=== PATIENT | female | born 1990 | race Hispanic/Latino ===

== ENCOUNTER 2020-01-31 19:43 | Emergency (ER) | payer OTHER, SELFPAY ==
--- NOTE | ~2020-01-31 | CT_ITS ---
EXAMINATION: CT abdomen pelvis w con DATE: 01/31/2020 21:02 INDICATION: Right flank and right lower quadrant abdominal pain TECHNIQUE: Computed tomography (CT) of the abdomen and pelvis was performed with 100 cc Omnipaque 350 intravenous contrast. Automated exposure control and iterative reconstruction technique were employe d. Exam dose: 469.43 mGy-cm total exam DLP. COMPARISON: 07/11/2018 CT abdomen pelvis FINDINGS: Stable approximately 7 mm hypoattenuating lesion at the posterior aspect of the right hepat ic dome, not significantly changed since 07/11/2018, consistent with benign process. Status post cholecystectomy. No interval hepatic, splenic, pancreatic, adrenal or renal space-occupyi ng mass lesions. No urinary tract calculus or hydroureteronephrosis is detected. Normal caliber of the abdominal aorta. No intraperitoneal or retroperitoneal or pelvic mass lesion or adenopathy or ascites. No bowel obstruction, bowel wall thickening, pneumatosis, diverticulosis or diverticulitis is evident . Normal appendix. The urinary bladder is unremarkable. Retroflexed uterus. Included skeletal structures are unremarkable. The lung bases are clear. Normal heart size. No pericardial or pleural effusion. IMPRESSION: Stable 7 mm right hepatic lesions since 07/11/2018, consistent with benign process Status post cholecystectomy Retroflexed uterus Reviewed, dictated and finalized at [facility]. Reviewed, dictated and finalized at [facility]. IMPRESSION: Stable 7 mm right hepatic lesions since 07/11/2018, consistent wit h benign process Status post cholecystectomy Retroflexed uterus
[2020-01-31 19:49] VITALS: BP 114/74; PULSE 96; RESP 18; TEMP 36.2; O2SAT 98
--- NOTE | 2020-01-31 19:56 | ED.ABDPAIN ---
HPI - Abdominal Pain General Chief Complaint: Abdominal Pain Stated Complaint: back pain Time Seen by Provider: 01/31/20 19:54 Source: patient and family History of Present Illness HPI narrative: 29 years old white female presents with right flank and right lower back pain, radiating to right lower quadrant started 3 days ago, intermittent, patient denies any fever, chills, nausea, vomiting, diarrhea, constipation, urinary symptoms, vaginal bleeding or discharge. Last menstrual period was 1 week ago, history of cholecystectomy, does not smoke, drink occasionally. Patient reports painting her house 2 days prior to the beginning of her symptoms. Related Data Allergies Allergy/AdvReac Type Severity Reaction Status Date / Time No Known Allergies Allergy Verified 01/31/20 19:52 Review of Systems Review of Systems: Narrative: CONSTITUTIONAL: Denies fever, chills, or sweats. EYES: Denies visual changes, redness, or discharge. ENT: Denies rhinorrhea, congestion, sore throat, or otalgia. CARDIOVASCULAR: Denies chest pain, palpitations, or edema. RESPIRATORY: Denies cough or dyspnea. GASTROINTESTINAL: Right flank and right lower quadrant pain GENITOURINARY: Denies dysuria or hematuria. SKIN: Denies rash or itching. MUSCULOSKELETAL: Denies back pain, joint pain, or myalgia. NEUROLOGIC: Denies headache, numbness, or weakness. PSYCHIATRIC: Denies anxiety or depression. PMFSH Social History Social History Gender identity (if verbalized by the patient): Female Exam Narrative: Exam Narrative: General appearance: Well-developed, well-nourished Skin: Normal color Head: Normocephalic, nontraumatic Eyes: Clear conjunctiva ENT: Oropharynx normal, ears normal, nose normal Neck: Supple, nontender Chest and respiratory: Airway patent, no respiratory distress, no accessory muscle use Heart: Regular rate/rhythm Abdomen: Soft, moderate tenderness right flank, no bruises, no swelling, no rash, mild tenderness right lower quadrant, mild guarding, no rebound. , no organomegaly, quiet bowel sounds Vascular: Normal peripheral pulses, normal capillary refill. Musculoskeletal: Normal range of motion, nontender back Neurologic: Alert and oriented ?3, [employer] is normal as tested, no gross motor deficit Course Course Emergency Course: Stable Vital Signs Vital signs: Vital Signs Temperature 36.2 C L 01/31/20 19:49 Pulse Rate 96 01/31/20 19:49 Respiratory Rate 18 01/31/20 19:49 Blood Pressure 114/74 01/31/20 19:49 Pulse Oximetry 98 01/31/20 19:49 Temperature 36.2 C L 01/31/20 19:49 Pulse Rate 96 01/31/20 19:49 Respiratory Rate 18 01/31/20 19:49 Blood Pressure 114/74 01/31/20 19:49 Pulse Oximetry 98 01/31/20 19:49 MDM - Abdominal Pain MDM Narrative Medical decision making narrative: My plan to get labs, CT abdomen pelvis with IV contrast, UA, start IV fluid, Dilaudid and Zofran. Further plan to follow. my concern is the differential diagnosis below Differential Diagnosis Differential diagnosis: Likely abdominal pain, acute appendicitis, calculus of kidney, constipation and other (Urinary tract infection) Lab Data Result diagrams: 01/31/20 19:54 01/31/20 19:54 Labs: Lab Results 01/31/20 01/31/20 01/31/20 Range/Units 19:53 19:54 19:54 WBC 8.1 (4.5-10.0) K/mm3 RBC 4.77 (4.2-5.4) M/mm3 Hgb 13.9 (12.0-15.0) g/dL Hct 41.7 (37.0-47.0) % MCV 87.4 (80-100) fl MCH 29.1 (26-34) pg MCHC 33.3 (32-36) g/dl RDW 12.6 (11.5-14.5) % Plt Count 289 (150-375) k/mm3 MPV 10.8 H (7.4-10.4) fl Immature Gran % (Auto) 0.2
[2020-01-31 19:59] LABS: Basophils Absolute Auto 0.1 K/mm3 (0.0-0.1); Basophils Percent Auto 0.6 % (0.2-1.2); Eosinophils Absolute Auto 0.2 K/mm3 (0-0.3); Eosinophils Percent Auto 1.8 % (0-4.4); Hematocrit 41.7 % (37.0-47.0); Hemoglobin 13.9 g/dL (12.0-15.0); Immature Granulocyte Absolute 0.02 K/mm3 (0.00-0.031); Immature Granulocyte Percent A 0.2 % (0-0.5); Lymphocytes Percent Auto 45.6 % (18.3-44.2); Mean Corpuscular HGB Conc 33.3 g/dl (32-36); Mean Corpuscular Hemoglobin 29.1 pg (26-34); Mean Corpuscular Volume 87.4 fl (80-100); Mean Platelet Volume 10.8 fl (7.4-10.4); Monocytes Absolute Auto 0.4 K/mm3 (0.1-0.6); Monocytes Percent Auto 5.1 % (2.6-8.5); Neutrophils Absolute Auto 3.8 K/mm3 (1.3-6.7); Neutrophils Percent Auto 46.7 % (45.5-73.1); Platelet Count Result 289 k/mm3 (150-375); Red Blood Count 4.77 M/mm3 (4.2-5.4); Red Cell Distribution Width 12.6 % (11.5-14.5); White Blood Count 8.1 K/mm3 (4.5-10.0)
[2020-01-31 20:03] LABS: Add Urine Microscopic? YES; Appearance Urine Clear (Clear); Bacteria Urine Trace /hpf; Bilirubin Urine Negative (Negative); Blood Urine 1+ (Negative); Color Urine Colorless (Yellow); Glucose Urine UA Negative (Negative); Ketones Urine Negative (Negative); Leukocyte Esterase Ur Negative LEU/UL (Negative); Mucus Urine Rare /lpf; Nitrate Urine Negative (Negative); Protein Urine Negative (Negative); RBC Urine 0-2 /hpf (0-2); Squamous Epithelial Cell Urine Rare /hpf (Few); Urobilinogen Urine Negative mg/dL (<2.0); WBC Urine 0-3 /hpf
[2020-01-31 20:04] LABS: Specific Grav Ur 1.003 (1.001-1.035)
[2020-01-31 20:11] LABS: Blood Urea Nitrogen 11 mg/dL (7-17); Calcium 8.8 mg/dL (8.4-10.2); Carbon Dioxide 22 mmol/L (22-30); Chloride 104 mmol/L (98-107); Estimated CRCL calculation 98 ml/min; Estimated Glomerular Filt Rate > 60; Glucose 88 mg/dL (65-105); Potassium 3.8 mmol/L (3.4-5.0); Sodium 140 mmol/L (137-145)
[2020-01-31] MEDS: ONDANSETRON INJ 4 MG/2 ML VIAL IV PUSH (20:30)
[2020-01-31] MEDS: SODIUM CHLORIDE 0.9% IV 1,000 ML 999 ML IV CONT (20:31)
[2020-01-31 21:50] VITALS: BP 142/74; PULSE 88; RESP 16; O2SAT 98
== END 2020-01-31 21:51 | disposition home or self-care (01) ==
PROVIDERS: Emergency Medicine; Emergency Provider Emergency Medicine
DX: M54.5 Low back pain (principal)
CPT/HCPCS: 36415; 74177; 80048; 81001; 81025; 85025; 96361; 96374; 96375; 99284; J1170; J2405; J7030; Q9967

== ENCOUNTER 2020-03-21 17:47 | Emergency (ER) | payer OTHER, SELFPAY ==
--- NOTE | ~2020-03-21 | XR_ITS ---
EXAMINATION: XR foot RT min 3V DATE: 03/21/2020 18:14 INDICATION: Trauma to the dorsum of the right foot present with pain at the metatarsals TECHNIQUE: Dorsoplantar, two oblique and lateral views of the right foot were obtained. COMPARISON: None. FINDINGS: Alignment is normal. No fracture. Joint spaces are normal. Soft tissues are unremarkable. IMPRESSION: 1. No osseous abnormality. Reviewed, dictated and finalized at location [facility]. IMPRESSION: 1. No osseous abnormality.
[2020-03-21 17:54] VITALS: BP 114/70; PULSE 85; RESP 16; TEMP 37.1; O2SAT 98
--- NOTE | 2020-03-21 18:27 | ED.GENADULT ---
HPI - General Adult General Chief complaint: Extremity Injury, Lower Stated complaint: injury to right foot Time Seen by Provider: 03/21/20 18:28 Source: patient and RN notes reviewed Limitations: no limitations History of Present Illness HPI narrative: 29-year-old female presents today with complaints of right foot with pain, bruising, and swelling for the past 5 days. Julisa says the base of a ceramic lamp fell on RT foot causing injury. Advil, elevation, and ice with little relief. Hurts to bear weight. No radiation of pain. No numbness, tingling, or loss of mobility. Exacerbating factor applying weight. Denies inability to bear weight. Denies discoloration. Denies suspect foreign body. Denies fever or chills. The patient reports she have not been diagnosed with COVID-19. The patient reports she is not waiting for the results of a COVID-19 lab test. The patient reports she do not have fever, chills, weakness, or fatigue. The patient reports she do not have a new or worsening cough or shortness of breath. Denies chest pain. The patient reports she do not have any rhinorrhea, congestion, sore throat, nausea, vomiting, abdominal pain, and diarrhea. Tolerating po intake well. Denies recent traveling. Denies concerns for COVID-19 or exposures been home with limited outdoor exposure except for essential household needs, work, and return home. At this time, patient is not suspected of having COVID-19. Some parts of this dictation were generated by voice recognition software and may contain typographical and/or grammatical inaccuracies. Related Data Allergies Allergy/AdvReac Type Severity Reaction Status Date / Time No Known Allergies Allergy Verified 03/21/20 17:53 Review of Systems Review of Systems: Narrative: CONSTITUTIONAL: Denies fever, chills, sweats. EYES: Denies visual changes, redness, discharge. ENT: Denies rhinorrhea, congestion, sore throat, otalgia. CARDIOVASCULAR: Denies chest pain, palpitations, edema. RESPIRATORY: Denies dyspnea, wheezing, cough. GASTROINTESTINAL: Denies abdominal pain, nausea, vomiting, diarrhea. GENITOURINARY: Denies dysuria, hematuria, abnormal discharge. SKIN: Denies rash or itching. MUSCULOSKELETAL: Denies acute back pain or myalgia. Complains of pain, bruising, and swelling to right foot. NEUROLOGIC: Denies numbness or focal weakness. PSYCHIATRIC: Denies anxiety or depression. All other systems reviewed are negative, except as documented in HPI and below. [facility] Past Medical History Medical History (Updated 03/27/20 @ 11:29 by HAROLDO De La Vega) No significant past medical history Surgical History Surgical History (Updated 03/21/20 @ 18:29 by HAROLDO De La Vega) History of cholecystectomy History of tonsillectomy Family History Family History (Updated 03/21/20 @ 18:37 by HAROLDO De La Vega) Father Alive and well Mother Alive and well Social History Social History (Updated 03/21/20 @ 18:38 by HAORLDO De La Vega) Smoking status: Never smoker Tobacco type: cigarettes Second hand tobacco smoke exposure: No Alcohol intake: current Substance use: never Living arrangements: with family Occupation/Education: occupation Gender identity (if verbalized by the patient): Female Sexual Orientation (if Verbalized by the Patient): Straight or Heterosexual Comments At time of signature, agree with nurse past medical, surgical, social, and family history. There is no relevant family history pertinent to the presenting complaint. Exam Narrative: Exam Narrative: GENERAL: This is a well-nourished, well-developed patient, in no apparent distress. Ambulates with a limp favoring right lower extremity. HEAD: normocephalic, atraumatic. EYES: PERRL. Sclera clear/white. Vision is grossly intact. CARDIOVASCULAR: Regular rate and rhythm without murmurs, gallops, or rubs. RESPIRATORY: Clear to auscultation. Breath sounds equal bilaterally. N
== END 2020-03-21 18:47 | disposition home or self-care (01) ==
PROVIDERS: Emergency Provider Nurse Practitioner Family
DX: S93.601A Unspecified sprain of right foot, initial encounter (principal); X58.XXXA Exposure to other specified factors, initial encounter
CPT/HCPCS: 73630; 99213; G0463

== ENCOUNTER 2020-06-04 10:29 | Emergency (ER) | payer OTHER, SELFPAY ==
[2020-06-04] VITALS (18 sets, daily range): BP systolic 99–128; BP diastolic 55–93; PULSE 66–100; RESP 12–20; TEMP 36.7; O2SAT 93–100
--- NOTE | ~2020-06-04 | XR_ITS ---
EXAMINATION: XR chest 1V portable EXAM DATE: 06/04/2020 11:52 INDICATION: Shortness of air, nausea vomiting diarrhea. Headache. TECHNIQUE: Portable AP frontal chest x-ray was obtained. There is no prior study for comparison. FINDINGS: The lungs are clear. There are no pleural effusions. The cardiomediastinal silhouette is within normal limits. There is no pneumothorax suspected. The bones and soft tissues are unremarkab le. IMPRESSION: No acute cardiopulmonary findings. Reviewed, dictated and finalized at location [facility]. [employer]
[2020-06-04] MEDS: ONDANSETRON INJ 4 MG/2 ML VIAL IV PUSH (11:34)
[2020-06-04] MEDS: SODIUM CHLORIDE 0.9% IV 1,000 ML 999 ML IV CONT (11:34)
[2020-06-04] MEDS: FAMOTIDINE 20 MG/2 ML VIAL IV PUSH (11:34)
[2020-06-04 11:36] LABS: Basophils Percent Auto 0.5 % (0.2-1.2); Eosinophils Absolute Auto 0.1 K/mm3 (0-0.3); Eosinophils Percent Auto 0.8 % (0-4.4); Hematocrit 44.3 % (37.0-47.0); Hemoglobin 15.1 g/dL (12.0-15.0); Immature Granulocyte Absolute 0.03 K/mm3 (0.00-0.031); Immature Granulocyte Percent A 0.4 % (0-0.5); Lymphocytes Percent Auto 19.4 % (18.3-44.2); Mean Corpuscular HGB Conc 34.1 g/dl (32-36); Mean Corpuscular Hemoglobin 29.7 pg (26-34); Mean Platelet Volume 10.6 fl (7.4-10.4); Monocytes Absolute Auto 0.3 K/mm3 (0.1-0.6); Monocytes Percent Auto 3.5 % (2.6-8.5); Neutrophils Absolute Auto 6.2 K/mm3 (1.3-6.7); Neutrophils Percent Auto 75.4 % (45.5-73.1); Platelet Count Result 267 k/mm3 (150-375); Red Blood Count 5.09 M/mm3 (4.2-5.4); Red Cell Distribution Width 12.3 % (11.5-14.5); White Blood Count 8.3 K/mm3 (4.5-10.0)
[2020-06-04 11:43] LABS: Add Urine Microscopic? YES; Appearance Urine Cloudy (Clear); Bacteria Urine 1+ /hpf; Bilirubin Urine Negative (Negative); Blood Urine Negative (Negative); Color Urine Yellow (Yellow); Glucose Urine UA Negative (Negative); Ketones Urine Negative (Negative); Leukocyte Esterase Ur Negative LEU/UL (Negative); Mucus Urine Rare /lpf; Nitrate Urine Negative (Negative); Protein Urine Negative (Negative); RBC Urine 0-2 /hpf (0-2); Specific Grav Ur 1.012 (1.001-1.035); Squamous Epithelial Cell Urine Many /hpf (Few); Transitional Epi Cells Urine Rare /hpf (None Seen); Urobilinogen Urine Negative mg/dL (<2.0); WBC Urine 0-3 /hpf
[2020-06-04 11:47] LABS: Alanine Aminotransferase 27 U/L (4-35); Albumin Level 4.8 g/dL (3.5-5.1); Alkaline Phosphatase 54 U/L (38-126); Anion Gap 9 mmol/L (8-16); Aspartate Amino Transferase 25 U/L (14-36); Bilirubin,Total 0.5 mg/dL (0.2-1.3); Blood Urea Nitrogen 10 mg/dL (7-17); Calcium 9.4 mg/dL (8.4-10.2); Carbon Dioxide 28 mmol/L (22-30); Chloride 104 mmol/L (98-107); Estimated CRCL calculation 98 ml/min; Estimated Glomerular Filt Rate > 60; Glucose 101 mg/dL (65-105); Lipase 52 U/L (23-300); Potassium 3.7 mmol/L (3.4-5.0); Sodium 141 mmol/L (137-145)
--- NOTE | 2020-06-04 13:13 | ED.NAVMDI ---
HPI - Nausea/Vomiting/Diarrhea General Chief complaint: Nausea/Vomiting/Diarrhea Stated complaint: n/v/d Time Seen by Provider: 06/04/20 11:12 Source: patient Mode of arrival: ambulatory Limitations: no limitations History of Present Illness HPI Narrative: Patient is a 30-year-old female who presents with URI symptoms diarrhea vomiting that has been present for the last week had a negative Covid test has had persistent symptoms did have a positive exposure at work patient notes headache at this time as her pain intermittent fever Related Data Allergies Allergy/AdvReac Type Severity Reaction Status Date / Time No Known Allergies Allergy Verified 06/04/20 10:48 Review of Systems Review of Systems: All systems reviewed & are unremarkable except as noted in HPI and below PMFSH Past Medical History Medical History No significant past medical history Surgical History Surgical History History of cholecystectomy History of tonsillectomy Family History Family History (Updated 03/21/20 @ 18:37 by HAROLDO De La Vega) Father Alive and well Mother Alive and well Social History Social History Smoking status: Never smoker Tobacco type: cigarettes Second hand tobacco smoke exposure: No Alcohol intake: current Substance use: never Gender identity (if verbalized by the patient): Female Exam Narrative: Exam Narrative: GENERAL: Ill-appearing, well-nourished, and in no acute distress. HEAD: Normocephalic, atraumatic. EYES: PERRLA and EOMI. ENT: Nares clear, no rhinorrhea or epistaxis. Mucous membranes moist. CHEST: Clear to auscultation. No respiratory distress. No wheezes rales or rhonchi HEART: Regular rate and rhythm. No murmur heard. EXTREMITIES: Normal range of motion. No edema. SKIN: Warm, dry, no rash. NEURO: No focal deficits. Alert and oriented x3. Cranial nerves II through XII grossly intact PSYCH: Normal mood and affect. Course Course Emergency Course: Patient in the room was tested for strep flu will be retested for Covid felt appropriate for discharge home no pneumonia seen on exam normal vital signs was hydrated in the emergency department. Patient agreeing to self quarantine and will follow with her primary care doctor to get her Covid results and is aware that her primary care is the only one that can get her results will also be given our on-call primary care Vital Signs Vital signs: Vital Signs Temperature 98.1 F 06/04/20 10:43 Pulse Rate 96 06/04/20 10:43 Respiratory Rate 18 06/04/20 10:43 Blood Pressure 128/88 06/04/20 10:43 Pulse Oximetry 98 06/04/20 10:43 Temperature 98.1 F 06/04/20 10:43 Pulse Rate 74 06/04/20 12:16 Respiratory Rate 19 06/04/20 12:03 Blood Pressure 109/80 06/04/20 11:30 Pulse Oximetry 100 06/04/20 12:16 MDM - Nausea/Vomiting/Diarrhea MDM Narrative Medical decision making narrative: Patient with upper respiratory symptoms concerning for possible Covid will be retested sent home to quarantine and follow with primary care and given reasons to return hemodynamically stable ABCs intact and stable Lab Data Result diagrams: 06/04/20 11:25 06/04/20 11:25 Labs: Lab Results 06/04/20 06/04/20 06/04/20 Range/Units 11:25 11:25 11:25 WBC 8.3 (4.5-10.0) K/mm3 RBC 5.09 (4.2-5.4) M/mm3 Hgb 15.1 H (12.0-15.0) g/dL Hct 44.3 (37.0-47.0) % MCV 87.0 (80-100) fl MCH 29.7 (26-34) pg MCHC 34.1 (32-36) g/dl RDW 12.3 (11.5-14.5) % Plt Count 267 (150-375) k/mm3 MPV 10.6 H (7.4-10.4) fl Immature Gran % (Auto) 0.4 (0-0.5) % Neut % (Auto) 75.4 H (45.5-73.1) % Lymph % (Auto) 19.4 (18.3-44.2) % [place] % (Auto) 3.5 (2.6-8.5) % Eos % (Auto) 0.8 (0-4.4) % Baso % (Auto) 0.5
[2020-06-05 01:31] LABS: SARS-CoV-2 RNA PCR Negative
== END 2020-06-04 13:41 | disposition home or self-care (01) ==
PROVIDERS: Emergency Medicine Emergency Medical Services; Emergency Provider Emergency Medicine; PCP Internal Medicine
DX: J06.9 Acute upper respiratory infection, unspecified (principal); Z20.828 Contact with and (suspected) exposure to other viral communicable diseases
CPT/HCPCS: 36415; 71045; 80053; 81001; 81025; 83690; 85025; 87081; 87635; 87804; 87880; 96361; 96374; 96375; 99284; C9803; J2405; J7030; U0003

== ENCOUNTER 2020-10-27 15:05 | Emergency (ER) | payer OTHER, SELFPAY ==
--- NOTE | ~2020-10-27 | XR_ITS ---
EXAMINATION: XR foot LT min 3V DATE: 10/27/2020 15:28 INDICATION: Left foot injury and pain. TECHNIQUE: 4 views of left foot were obtained. COMPARISON: None. FINDINGS: Bone alignment is normal. No fracture. There is mild osteoarthritis of first metatarsophala ngeal joint and first interphalangeal joint. There is soft tissue swelling of the dorsum of the foot. IMPRESSION: 1. Mild polyarticular osteoarthritis. Reviewed, dictated and finalized at location [facility].
[2020-10-27 15:20] VITALS: BP 83/58; PULSE 79; RESP 16; TEMP 36.1; O2SAT 100
--- NOTE | 2020-10-27 15:31 | ED.LOWEXIN ---
HPI - Extremity Injury (Lower) General Chief Complaint: Extremity Injury, Lower Stated Complaint: INJURED L FOOT Source: patient and RN notes reviewed Limitations: no limitations History of Present Illness HPI Narrative: The patient, previous mostly healthy, gravid patient, presents with foot injury. Patient is a G3, P2 at 17 weeks and indicates she dropped a new car seat box on her left foot. She complains of mild pain and swelling proximal metatarsals. No bleeding, deformity; no abdominal pain, vaginal discharge, pelvic pain ;symptoms are mild, worse with activity --she walks with only a mildly antalgic gait. Related Data Allergies Allergy/AdvReac Type Severity Reaction Status Date / Time No Known Allergies Allergy Verified 06/04/20 10:48 Review of Systems Review of Systems: Narrative: General/Constitutional: No weight loss,fever Eyes: N0: Redness,discharge Ears/Nose/Throat: No: Epistaxis,ear discharge Respiratory: Denies: Hemoptysis Gastrointestinal: No Vomiting, Bleeding-rectal Skin: No Lumps, eruption Neurologic: No Focal Weakness,Sz Hematologic: Denies: Petechiae/Purpura Psychiatric: No: Suicida ideationl All Other Systems: Reviewed and Negative [facility] Past Medical History Medical History No significant past medical history Surgical History Surgical History History of cholecystectomy History of tonsillectomy Family History Family History (Updated 03/21/20 @ 18:37 by HAROLDO De La Vega) Father Alive and well Mother Alive and well Social History Social History Smoking status: Never smoker Tobacco type: cigarettes Second hand tobacco smoke exposure: No Alcohol intake: current Substance use: never Gender identity (if verbalized by the patient): Female Comments At time of signature, agree with nursing past medical, surgical, social and family history. There is no relevant family history pertinent to the presenting complaint Exam Narrative: Exam Narrative: General Appearance: Gravid/well nourished, Conjunctiva clear Ears: External ear normal, Auditory canal normal Nose: Normal nose, Nares clear Mouth/Throat: Normal appearing, Normal lips, Supple Respiratory: Airway patent, No respiratory distress MS foot: Normal strength (mostly intact, limited flexion/extension by pain), Tenderness (extensor, with mild decreased ROM), Swelling (answer), Other (no anterior drawer, no collateral laxity, no Achilles tenderness, no fifth MT tenderness) Skin: Warm, Dry, Normal color Neurological: A&O x3, , Normal affect Course Course Emergency Course: Films visualized, interpreted by radiologist, agree, normal see report Vital Signs Vital signs: Vital Signs Temperature 97 F L 10/27/20 15:20 Pulse Rate 79 10/27/20 15:20 Respiratory Rate 16 10/27/20 15:20 Blood Pressure 83/58 L 10/27/20 15:20 Pulse Oximetry 100 10/27/20 15:20 Temperature 97 F L 10/27/20 15:20 Pulse Rate 79 10/27/20 15:20 Respiratory Rate 16 10/27/20 15:20 Blood Pressure 83/58 L 10/27/20 15:20 Pulse Oximetry 100 10/27/20 15:20 Discharge Plan Discharge Clinical Impression: Traumatic ecchymosis of left foot Qualifiers: Encounter type: initial encounter Qualified Code(s): S90.32XA - Contusion of left foot, initial encounter Patient Disposition: Home, Self-Care Condition: Stable Instructions: Contusion in Adults (ED) Prescriptions: New acetaminophen-codeine 120 mg-12 mg /5 mL (5 mL) solution 7.5 ml PO HS Qty: 110 RF: 0 prenat.[id number] Tablet 1 tablet PO DAILY Qty: 30 RF: 1 Follow-up/Referrals: Kerry Avila MD [Other]
== END 2020-10-27 15:36 | disposition home or self-care (01) ==
PROVIDERS: Emergency Provider Emergency Medicine
DX: O9A.212 Injury, poisoning and certain other consequences of external causes complicating pregnancy, second trimester (principal); S90.32XA Contusion of left foot, initial encounter; Z3A.17 17 weeks gestation of pregnancy; W20.8XXA Other cause of strike by thrown, projected or falling object, initial encounter
CPT/HCPCS: 73630; 99213; G0463

== ENCOUNTER 2022-07-11 19:11 | Emergency (ER) | payer BC, SELFPAY ==
--- NOTE | 2022-07-11 19:15 | ED.NAVMDI ---
HPI - Nausea/Vomiting/Diarrhea General Chief complaint: Nausea/Vomiting/Diarrhea Stated complaint: LOW R BACK PAIN/DIARRHEA Time Seen by Provider: 07/11/22 19:15 Source: patient and RN notes reviewed History of Present Illness HPI Narrative: Patient is a 32-year-old female presents to urgent care with complaints of right low back pain, diarrhea and vomiting. Patient states that symptoms started on Sunday with 2 episodes of vomiting today and for loose stools today. Patient denies any history of kidney stones. Denies any urinary symptoms with the exception of cloudy urine. Patient states that she does not believe she is however they are not avoiding . Denies any blood in the urine. Patient has been taking ibuprofen for her symptoms. Denies any fever or abdominal discomfort. No other acute complaints. No acute distress noted. Patient aware of the plan of care. Some parts of this dictation were generated by voice recognition software and may contain typographical and/or grammatical inaccuracies. Related Data Allergies Allergy/AdvReac Type Severity Reaction Status Date / Time No Known Allergies Allergy Verified 07/11/22 19:20 Review of Systems Review of Systems: CONSTITUTIONAL: Denies fever, chills, or sweats. EYES: Denies visual changes, redness, or discharge. ENT: Denies rhinorrhea, congestion, sore throat, or otalgia. CARDIOVASCULAR: Denies chest pain, palpitations, or edema. RESPIRATORY: Denies cough or dyspnea. GASTROINTESTINAL: Reports of nausea, vomiting and diarrhea GENITOURINARY: Denies dysuria or hematuria. SKIN: Denies rash or itching. MUSCULOSKELETAL: Reports right-sided low back pain NEUROLOGIC: Denies headache, numbness, or weakness. All other systems reviewed are negative, except as documented in HPI. [facility] Past Medical History Medical History No significant past medical history Surgical History Surgical History History of cholecystectomy History of tonsillectomy Family History Family History (Updated 03/21/20 @ 18:37 by HAROLDO De La Vega) Father Alive and well Mother Alive and well Social History Social History Smoking status: Never smoker Tobacco type: cigarettes Second hand tobacco smoke exposure: No Alcohol intake: current Substance use: never Gender identity (if verbalized by the patient): Female Sexual Orientation (if Verbalized by the Patient): Straight or Heterosexual Comments At the time of my signature, I reviewed and agree with the nursing past medical, surgical, social, and family history. There is no relevant family history pertinent to the patient complaint. Exam Narrative: GENERAL: This is a well-nourished, well-developed patient, in no apparent distress. HEAD: normocephalic, atraumatic. EYES: PERRL. Sclera clear/white. Vision is grossly intact. EARS: External ears normal NOSE: External nose normal with no obvious nasal discharge, nares without redness, no rhinorrhea. THROAT: Mucous membranes moist NECK: Neck supple CARDIOVASCULAR: Regular rate and rhythm without murmurs, gallops, or rubs. RESPIRATORY: Clear to auscultation. Breath sounds equal bilaterally. No wheezes, rales, or rhonchi. GASTROINTESTINAL: Abdomen soft, moderate right lower quadrant tenderness, nondistended. Bowel sounds are active. SKIN: warm, intact with no suspicious lesions or rash, good texture and turgor. NEURO: awake, alert, and oriented to person, place and time. There were no obvious focal neurologic abnormalities. EXTREMITIES: No clubbing, cyanosis, or edema. BACK: Moderate right CVA tenderness Course Course Level of Care: Express Care Visit Vital Signs Vital signs: Vital Signs Temperature 98.3 F 07/11/22 19:20 Pulse Rate 88 07/11/22 19:20 Respiratory Rate 16
[2022-07-11 19:20] VITALS: BP 117/63; PULSE 88; RESP 16; TEMP 36.8; O2SAT 99
== END 2022-07-11 19:40 | disposition left against medical advice (07) ==
PROVIDERS: Emergency Provider Nurse Practitioner Family
DX: R19.7 Diarrhea, unspecified (principal); R22.2 Localized swelling, mass and lump, trunk; E05.00 Thyrotoxicosis with diffuse goiter without thyrotoxic crisis or storm
CPT/HCPCS: 81003; 81025; 99213; G0463

== ENCOUNTER 2022-10-05 13:35 | Emergency (ER) | payer BC, SELFPAY ==
[2022-10-05 13:46] VITALS: BP 109/79; PULSE 80; RESP 16; TEMP 36.6; O2SAT 98
--- NOTE | 2022-10-05 13:49 | ED.URI ---
HPI - URI/Sore Throat General Chief Complaint: Nausea/Vomiting/Diarrhea Stated Complaint: nauseous, bodyache,fever,vomitting Time Seen by Provider: 10/05/22 13:38 Source: patient and RN notes reviewed History of Present Illness HPI Narrative: Patient is a 32-year-old female who presents to urgent care with complaints of nausea, vomiting, fever, body aches and diarrhea. Patient states that most of her symptoms started yesterday with the diarrhea and body aches. States that she has been unable to keep down even water today due to the nausea and vomiting. Patient denies any urinary symptoms but does have right-sided low back pain. Patient was seen at our facility a few months ago and signed out against medical advice, treated for diverticulitis which did improve her symptoms. States her symptoms are very similar from the last episode and she is not taking any of the leftover Bentyl for her symptoms. Patient has been taking ibuprofen. Denies any upper respiratory complaints. No acute distress noted. Patient aware of the plan of care. Some parts of this dictation were generated by voice recognition software and may contain typographical and/or grammatical inaccuracies. Related Data Home Medications Medication Instructions Recorded Confirmed methimazole 10 mg tablet 10 mg PO BID 10/05/22 10/05/22 Allergies Allergy/AdvReac Type Severity Reaction Status Date / Time No Known Allergies Allergy Verified 10/05/22 13:53 Review of Systems Review of Systems: CONSTITUTIONAL: Reports of fever EYES: Denies visual changes, redness, or discharge. ENT: Denies rhinorrhea, congestion, sore throat, or otalgia. CARDIOVASCULAR: Denies chest pain, palpitations, or edema. RESPIRATORY: Denies cough or dyspnea. GASTROINTESTINAL: Reports of diarrhea, nausea, vomiting GENITOURINARY: Denies dysuria or hematuria. SKIN: Denies rash or itching. MUSCULOSKELETAL: Denies back pain, joint pain. Reports body aches NEUROLOGIC: Reports of headache All other systems reviewed are negative, except as documented in HPI. [facility] Past Medical History Medical History No significant past medical history Surgical History Surgical History History of cholecystectomy History of tonsillectomy Family History Family History (Updated 03/21/20 @ 18:37 by HAROLDO De La Vega) Father Alive and well Mother Alive and well Social History Social History Smoking status: Never smoker Tobacco type: cigarettes Second hand tobacco smoke exposure: No Alcohol intake: current Substance use: never Living arrangements: with family Occupation/Education: occupation Gender identity (if verbalized by the patient): Female Sexual Orientation (if Verbalized by the Patient): Straight or Heterosexual Comments At the time of my signature, I reviewed and agree with the nursing past medical, surgical, social, and family history. There is no relevant family history pertinent to the patient complaint. Exam Narrative: GENERAL: This is a well-nourished, well-developed patient, in no apparent distress. HEAD: normocephalic, atraumatic. EYES: PERRL. Sclera clear/white. Vision is grossly intact. EARS: External ears normal NOSE: External nose normal with no obvious nasal discharge, nares without redness, no rhinorrhea. THROAT: Mucous membranes moist NECK: Neck supple RESPIRATORY: Clear to auscultation. Breath sounds equal bilaterally. No wheezes, rales, or rhonchi. GASTROINTESTINAL: Abdomen soft, right lower quadrant tenderness, nondistended. Bowel sounds are active. No guarding. SKIN: warm, intact with no suspicious lesions or rash, good texture and turgor. NEURO: awake, alert, and oriented to person, place and time. There were no obvious focal neurologic abnormalities. EXTREMITIES: No clubb
== END 2022-10-05 14:29 | disposition home or self-care (01) ==
PROVIDERS: Emergency Provider Nurse Practitioner Family
DX: K52.9 Noninfective gastroenteritis and colitis, unspecified (principal)
CPT/HCPCS: 81003; 87081; 87880; 99213; G0463

== ENCOUNTER 2023-01-02 11:06 | Emergency (ER) | payer BC, SELFPAY ==
[2023-01-02] VITALS (15 sets, daily range): BP systolic 115–142; BP diastolic 74–85; PULSE 59–98; RESP 13–31; O2SAT 98–100
--- NOTE | ~2023-01-02 | XR_ITS ---
EXAMINATION: XR soft tissue neck DATE: 01/02/2023 12:31 INDICATION: Throat discomfort. TECHNIQUE: 2 views of the neck soft tissues on 3 radiographs were obtained. COMPARISON: None. FINDINGS: The palatine tonsils, adenoids, epiglottis, prevertebral soft tissues, and glottis are norm al. Surgical clips overlie the mediastinum. IMPRESSION: 1. Normal neck soft tissues. Reviewed, dictated and finalized at location A.
--- NOTE | ~2023-01-02 | XR_ITS ---
EXAMINATION: XR chest 2V DATE: 01/02/2023 11:35 INDICATION: Chest pain. Shortness of breath. TECHNIQUE: Frontal and lateral views of the chest were obtained. COMPARISON: Chest single view 06/04/20, CT abdomen and pelvis 01/31/2020 FINDINGS: There is mild scarring at the lung apices. No pleural effusion or pneumothorax. The heart s ize is normal. Surgical clips overlie the mediastinum. Surgical clips in the right upper quadrant are likely from cholecystectomy. IMPRESSION: 1. Mild scarring at the lung apices. Reviewed, dictated and finalized at location A.
--- NOTE | 2023-01-02 11:13 | ECG_ITS ---
Measurements Intervals [place] Rate: 66 P: 62 AL: 141 QRS: 60 QRSD: 94 T: 52 QT: 403 QTc: 422 Interpretive Statements SINUS RHYTHM NO PREVIOUS ECG AVAILABLE FOR COMPARISON Electronically Signed On 01-02-2023 14:16:00 CDT by Cristine Call M.D.
[2023-01-02 11:30] LABS: Basophils Percent Auto 0.5 % (0.2-1.2); Eosinophils Absolute Auto 0.1 K/mm3 (0-0.3); Hematocrit 43.4 % (37.0-47.0); Hemoglobin 14.3 g/dL (12.0-15.0); Immature Granulocyte Absolute 0.01 K/mm3 (0.00-0.031); Immature Granulocyte Percent A 0.2 % (0-0.5); Lymphocytes Absolute Auto 2.49 K/mm3 (0.9-3.2); Lymphocytes Percent Auto 41.6 % (18.3-44.2); Mean Corpuscular HGB Conc 32.9 g/dl (32-36); Mean Corpuscular Hemoglobin 28.6 pg (26-34); Mean Corpuscular Volume 86.8 fl (80-100); Mean Platelet Volume 10.8 fl (7.4-10.4); Monocytes Absolute Auto 0.4 K/mm3 (0.1-0.6); Monocytes Percent Auto 6.5 % (2.6-8.5); Neutrophils Percent Auto 50.2 % (45.5-73.1); Platelet Count Result 258 k/mm3 (150-375); Red Cell Distribution Width 12.9 % (11.5-14.5)
[2023-01-02 11:41] LABS: Partial Thromboplastin Time 27.3 SECONDS (22.3-36.8); Prothrombin Time 13.2 Seconds (11.1-14.7)
--- NOTE | 2023-01-02 11:43 | ED.CHESTPAIN ---
HPI - Chest Pain General Chief Complaint: Chest Pain Stated Complaint: CP AND BLOODY EMESIS Time Seen by Provider: 01/02/23 11:15 Source: patient Mode of arrival: ambulatory Limitations: no limitations History of Present Illness HPI narrative: Patient is a 32-year-old female with a history of hyperthyroidism, thyroid nodule, presenting to the emergency department for evaluation of chest pain. Patient reports chest pain as well as cough with hemoptysis this morning. Patient reports chest pain is aching in nature in the center of her chest without radiation to the back, shoulder, neck or jaw. Patient reports slight blood streaking with cough. Also reports mucus production. She denies fever, chills, shortness of breath. She does report difficulty taking a deep breath when she lays flat but reports improvement when sitting forward. She denies fever, chills, nausea or vomiting. No leg swelling or calf pain. No history of DVT or PE. Patient denies recent surgery or immobility. No recent long car or air travel. She does not take oral contraceptives. Patient denies recent sick contacts. Denies sore throat, congestion. Patient has been compliant with her thyroid medication. Related Data Home Medications Medication Instructions Recorded Confirmed methimazole 10 mg tablet 10 mg PO BID 10/05/22 10/05/22 Allergies Allergy/AdvReac Type Severity Reaction Status Date / Time No Known Allergies Allergy Verified 10/05/22 13:53 Review of Systems Review of Systems: CONSTITUTIONAL: Denies fever, chills, or sweats. EYES: Denies visual changes, redness, or discharge. ENT: Denies rhinorrhea, congestion, sore throat, or otalgia. CARDIOVASCULAR: Reports chest pain over the middle of the chest without palpitations or edema RESPIRATORY: Reports cough without shortness of breath GASTROINTESTINAL: Denies abdominal pain, nausea, vomiting, or diarrhea. GENITOURINARY: Denies dysuria or hematuria. SKIN: Denies rash or itching. MUSCULOSKELETAL: Denies back pain, joint pain, or myalgia. NEUROLOGIC: Denies headache, numbness, or weakness. PSYCHIATRIC: Denies anxiety or depression. [facility] Past Medical History Medical History (Updated 01/02/23 @ 15:44 by Mary Mccartney MD) Hyperthyroidism No significant past medical history Surgical History Surgical History History of cholecystectomy History of tonsillectomy Family History Family History (Updated 03/21/20 @ 18:37 by HAROLDO De La Vega) Father Alive and well Mother Alive and well Social History Social History Smoking status: Never smoker Tobacco type: cigarettes Second hand tobacco smoke exposure: No Alcohol intake: current Substance use: never Living arrangements: with family Occupation/Education: occupation Gender identity (if verbalized by the patient): Female Sexual Orientation (if Verbalized by the Patient): Straight or Heterosexual Exam Narrative: GENERAL: Awake, alert, conversant HEAD: Normocephalic, atraumatic. EYES: PERRLA and EOMI. ENT: Nares clear, no rhinorrhea or epistaxis. Mucous membranes moist. Oropharynx is clear. Uvula is midline. No trismus. No edema. NECK: Supple. No lymphadenopathy palpated. No edema. No thyromegaly. CHEST: No respiratory distress, breathing even and non labored, no wheezing, rhonchi, rales, no chest wall tenderness HEART: Regular rate, sinus rhythm ABDOMEN:Non distended, non tender EXTREMITIES: Normal range of motion. No edema. No calf tenderness bilaterally. SKIN: Warm, dry, no rash. NEURO:No focal deficits. Alert and oriented x3 Course Vital Signs Vital signs: Vital Signs Pulse Rate 78 01/02/23 11:14 Respiratory Rate 16 01/02/23 11:14 Blood Pressure 115/85 01/02/23 11:14 Pulse Oximetry 99 01/02/23 11:14 Oxygen Delivery Room Air 01/02/23 11:14 Pulse
[2023-01-02 11:51] LABS: Alanine Aminotransferase 19 U/L (6-35); Albumin Level 4.5 g/dL (3.5-5.1); Alkaline Phosphatase 43 U/L (38-126); Anion Gap 7 mmol/L (8-16); Aspartate Amino Transferase 25 U/L (14-36); Bilirubin,Total 0.7 mg/dL (0.2-1.3); Blood Urea Nitrogen 13 mg/dL (7-17); Carbon Dioxide 28 mmol/L (22-30); Chloride 104 mmol/L (98-107); Estimated CRCL calculation 110 ml/min; Estimated Glomerular Filt Rate > 60; Glucose 90 mg/dL (65-110); Lipase 73 U/L (23-300); Potassium 4.1 mmol/L (3.4-5.0); Sodium 139 mmol/L (137-145)
[2023-01-02 12:05] LABS: Troponin I < 0.012 ng/mL (0.000-0.034)
[2023-01-02 12:37] LABS: D Dimer 0.32 ug/mL (<0.48)
[2023-01-02 14:25] LABS: Troponin I < 0.012 ng/mL (0.000-0.034)
== END 2023-01-02 15:54 | disposition home or self-care (01) ==
PROVIDERS: Emergency Provider Emergency Medicine
DX: R07.89 Other chest pain (principal); R04.2 Hemoptysis; E05.90 Thyrotoxicosis, unspecified without thyrotoxic crisis or storm; Z90.49 Acquired absence of other specified parts of digestive tract
CPT/HCPCS: 36415; 70360; 71046; 80053; 83690; 84443; 84484; 85025; 85380; 85610; 85730; 93005; 99284

== ENCOUNTER 2024-02-23 12:11 | Emergency (ER) | payer BC, SELFPAY ==
--- NOTE | 2024-02-23 12:22 | ED.URI ---
HPI - URI/Sore Throat General Chief Complaint: Upper Respiratory Infection Stated Complaint: SORE THROAT/EARACHE/COUGH/BODY ACHES Time Seen by Provider: 02/23/24 12:43 Source: patient and RN notes reviewed Mode of arrival: ambulatory Limitations: no limitations History of Present Illness HPI Narrative: 33-year-old female presents with concern for 3 day history of sore throat, earaches, body aches, cough. She reports she works from home and does not have any known sick contacts. She has been taking DayQuil and NyQuil MD elicited complaint: cough and sore throat Related Data Home Medications Medication Instructions Recorded Confirmed methimazole 10 mg tablet 10 mg PO BID 10/05/22 10/05/22 Allergies Allergy/AdvReac Type Severity Reaction Status Date / Time No Known Allergies Allergy Verified 10/05/22 13:53 Review of Systems Review of Systems: CONSTITUTIONAL: Reports malaise. Denies chills, sweats, or fever. EYES: Denies visual changes, redness, or discharge. ENT: Reports rhinorrhea, congestion, otalgia and sore throat. CARDIOVASCULAR: Denies chest pain, palpitations, or edema. RESPIRATORY: Reports cough. Denies dyspnea. GASTROINTESTINAL: Denies abdominal pain, nausea, vomiting, diarrhea SKIN: Denies rash or itching. MUSCULOSKELETAL: Reports myalgia. NEUROLOGIC: Denies headache. All systems reviewed & are unremarkable except as noted in HPI and below PMFSH Past Medical History Medical History (Updated 02/23/24 @ 12:49 by Key Greenwood NP) Hyperthyroidism No significant past medical history Surgical History Surgical History History of cholecystectomy History of tonsillectomy Family History Family History (Updated 03/21/20 @ 18:37 by HAROLDO De La Vega) Father Alive and well Mother Alive and well Social History Social History Smoking status: Never smoker Tobacco type: cigarettes Second hand tobacco smoke exposure: No Alcohol intake: current Substance use: never Living arrangements: with family Occupation/Education: occupation Gender identity (if verbalized by the patient): Female Sexual Orientation (if Verbalized by the Patient): Straight or Heterosexual Comments At time of signature, agree with nursing past medical, surgical, social and family history. There is no relevant family history pertinent to the presenting complaint Exam Narrative: GENERAL: Well-appearing, well-nourished, and in no acute distress. HEAD: Normocephalic EYES: PERRLA, conjunctivae clear ENT: Nares clear. Mucous membranes moist. TM pearly renteria with dull light reflex bilaterally; no tragal tenderness. Oropharynx not erythematous without lesions. Tonsils not enlarged and without exudate, no drooling, no hoarseness, no trismus, uvula midline. NECK: Supple. No lymphadenopathy CHEST: Clear to auscultation, breath sounds equal. No wheezing, rhonchi, rales, or stridor. No respiratory distress, speaks in full sentences. HEART: Regular rate and rhythm. No murmur heard. SKIN: Warm, dry, no rash. NEURO: Alert and oriented x3. PSYCH: Normal mood and affect Course Course Emergency Course: Patient is aware of diagnosis, understands and agrees to treatment plan. Anticipatory guidance given. Patient agrees to follow-up as directed and is aware of reasons to seek care at the emergency department. Portions of this record may have been created with voice recognition software Level of Care: Express Care Visit Vital Signs Vital signs: Reviewed. MDM - URI/Sore Throat MDM Narrative Medical decision making narrative: Differential diagnosis considered: Cowan virus, strep pharyngitis, allergic rhinitis, upper respiratory tract infection, sinusitis, rhinosinusitis, nasopharyngitis. viral pharyngitis, otitis media, otitis externa, pneumonia, bronchitis, viral cough syndrome, viral syndrome,
[2024-02-23 12:28] VITALS: BP 115/95; PULSE 89; RESP 16; TEMP 37.5; O2SAT 100
[2024-02-23 12:39] LABS: EDSTREPNEGPOS1 Presumptive Negative
[2024-02-23 12:43] LABS: EDINFLUASCREEN Negative; EDINFLUBSCREEN Negative
== END 2024-02-23 13:00 | disposition home or self-care (01) ==
PROVIDERS: Emergency Provider Nurse Practitioner
DX: J06.9 Acute upper respiratory infection, unspecified (principal); Z20.822 Contact with and (suspected) exposure to COVID-19; E05.90 Thyrotoxicosis, unspecified without thyrotoxic crisis or storm
CPT/HCPCS: 87081; 87426; 87804; 87880; 99213; G0463